=== PATIENT | female | born 1975 | race Caucasian/White ===

== ENCOUNTER 2018-05-30 19:10 | Emergency (ER) | payer SELFPAY ==
[2018-05-30 19:11] VITALS: BP 152/95; PULSE 110; RESP 16; TEMP 36.6; O2SAT 100; BMI 27.1
[2018-05-30 19:20] LABS: Bedside Glucose 71 mg/dL (70-110)
[2018-05-30] MEDS: LORazepam 2 MG/ML Syringe 1 MG IV ×2 (19:45→20:40)
--- NOTE | 2018-05-30 19:52 | ED.VISSUMM ---
- ER Visit Summary Date of Service: 05/30/18 Chief Complaint: Seizure History of Present Illness: The patient is a [address] Ross. She has a long-standing history of seizures. States that she does not take medications for this because I gain weight. She also reports that she drives despite not being on medications for this. Her last seizure was approximately 1 year ago. This evening the patient had a seizure that was observed by family. Last approximate 4-5 minutes. It was bilateral tonic-clonic activity. She was standing and fell prior to this. She did not bite her tongue. No urinary incontinence. She denies any injury from the falls. She is on on blood thinners. She denies a headache. Physical Examination: Vitals: Stable. Afebrile. General: Well-nourished and well-developed. Head: Normocephalic atraumatic. Neck: Supple, no lymphadenopathy. No JVD. Nontender. Cardiovascular: Regular rate and rhythm. No murmurs. Respiratory: No respiratory distress. Clear to auscultation bilaterally. Abdominal: Soft, nontender, nondistended, normal bowel sounds. No guarding, rebound, or peritoneal signs. Back: Nontender. Extremities: Nontender, no edema. Skin: Normal color, no rash. Neurologic: Alert and oriented ?3. Cranial nerves II through XII are intact. Normal strength and sensation. Psych: Normal affect. Emergency Department Course and Treatment: Patient had an IV placed. She was given a dose of Ativan IV. Initially she refused any and tab epileptics. She had a second seizure here that I observed. This was not generalized tonic-clonic activity. It lasted approximately 5 minutes. She had no postictal episode. She was given Keppra IV. Treatment Plan: Patient will be placed on Keppra 500 mg p.o. twice daily. Patient will be discharged with instructions to follow-up with her primary care physician for further evaluation treatment. She is instructed to not drive again until she is cleared by her primary. Return to the emergency department for any worsening symptoms. Disposition: To home in improved and stable condition. Impression: 1. Seizure, recurrent. This note was generated with [employer] software. It may contain incorrect words, spelling, and punctuation that were not noted in review of the chart prior to signing ED Disposition - Plan for ED Patient: Disposition: Home or Assisted Living Instructions: ED Seizure Recurrent Prescriptions: Levetiracetam [Keppra] 500 mg PO BID #60 tab Referrals: Doctor,Your [STAFF PHYSICIAN] - As soon as possible Additional Instructions: DO NOT DRIVE UNTIL CLEARED BY YOUR DOCTOR.
[2018-05-30 20:44] VITALS: BP 144/79; PULSE 114; RESP 20; O2SAT 97
[2018-05-30 21:08] LABS: Absolute Lymphocyte Count 1.37 X10^3/ul (0.83-4.51); Basophil# 0.02 X10^3/uL; Basophil% 0.2 % (0-1); Eosinophil# 0.04 X10^3/uL; Eosinophils% 0.3 % (0-5); Hematocrit 38.9 % (37-47); Lymphocyte # 1.37 X10^3/ul (4.0); Lymphocyte % 10.4 % (19-41); Mean Corp Hgb Conc 33.4 g/gl (32-36); Mean Corpuscular Hgb 30.2 pg (27.0-32.0); Mean Corpuscular Volume 90.5 fL (81-99); Mean Platelet Vol. 10.3 fl (6.2-12.0); Monocyte# 0.76 X10^3/uL; Monocyte% 5.8 % (0-10); Neutrophil # 10.98 X10^3/uL (2.7-7.7); Neutrophil % 83.1 % (47-70); POSITIVE COUNT NO; POSITIVE DIFFERENTIAL NO; POSITIVE MORPHOLOGY NO; Platelet Count 293 K/mm3 (150-450); RBC Distribution Width CV 13.5 % (11.6-14.6); RBC Distribution Width SD 44.5 fl (35.1-43.9); White Blood Count 13.2 K/mm3 (4.4-11.0)
[2018-05-30] MEDS: levETIRAcetam IV 1,000 MG/100 ML BAG 400 MG IV (21:10)
[2018-05-30 21:21] LABS: BUN 5 mg/dL (7-18); Creatinine, Serum 0.79 mg/dL (0.55-1.02); EST Glomerular Filtration Rate 85 mL/min (>60); Estimated Creatinine Clearance 100.32 ml/min; Glucose 100 mg/dL (74-106)
[2018-05-30 21:22] LABS: Anion Gap 6 (5-15); BUN/Creat Ratio 6.3 RATIO (10-20); Calcium,Total 8.7 mg/dL (8.5-10.1); Chloride 105 mmol/L (98-107); Est Glom Filt Rate - Afr Amer 102 mL/min (>60); Potassium 3.8 mmol/L (3.5-5.1); Sodium Level 136 mmol/L (136-145)
[2018-05-30 22:15] VITALS: BP 108/59; PULSE 102; RESP 16; O2SAT 98
== END 2018-05-30 22:27 | disposition home or self-care (01) ==
PROVIDERS: Emergency Provider Emergency Medicine; Family Provider Family Medicine; PCP Family Medicine
DX: G40.909 Epilepsy, unspecified, not intractable, without status epilepticus (principal); Z72.0 Tobacco use
CPT/HCPCS: 80048; 82962; 85025; 96374; 96375; 96376; 99285; J7050; A4216